=== PATIENT | male | born 2000 | race Hispanic/Latino ===

== ENCOUNTER 2019-08-08 01:02 | Inpatient (IN) | payer BC, SELFPAY ==
[2019-08-08] MEDS ORDERED: NA CHLORIDE 0.9% 2,000 ML ONE ×2 (01:44→01:49)
[2019-08-08 01:47] LABS: Absolute Lymphocytes (CBC) 0.9 K/uL (0.7-4.9); Basophils % 0.6 % (0-1.3); Hematocrit 39.9 % (39.6-49.0); Lymphocytes % 7.1 % (15.3-44.8); MPV 8.7 fL (7.6-11.3); RBC Red Blood Cell Count 4.47 M/uL (4.33-5.43)
[2019-08-08] MEDS ORDERED: ACT CHARCOAL/SORB 50 GM/240ML ONE (01:49)
[2019-08-08 01:50] LABS: Protime INR 1.04
[2019-08-08 02:12] LABS: ALT/SGPT 48 U/L (12-78); AST/SGOT 58 U/L (15-37); Albumin 4.3 g/dL (3.4-5.0); Alkaline Phosphatase 109 U/L (45-117); BUN Blood Urea Nitrogen 12 mg/dL (7-18); Bicarbonate 25 mmol/L (21-32); Bilirubin Direct 0.1 mg/dL (0-0.2); Bilirubin Total 0.5 mg/dL (0.2-1.0); Glucose Level 91 mg/dL (74-106); Potassium 3.6 mmol/L (3.5-5.1); Protein, Total 8.5 g/dL (6.4-8.2); Sodium Level 140 mmol/L (136-145)
[2019-08-08 02:49] LABS: Blood Morphology Comment NOT SEEN (NOT SEEN); Platelet Estimate ADEQ
[2019-08-08] MEDS ORDERED: LORazepam 2 MG/ML VIAL ONE ×5 (03:57→15:05)
[2019-08-08 04:32] LABS: Barbiturates NEGATIVE (NEGATIVE); Benzodiazepines NEGATIVE (NEGATIVE); Cocaine NEGATIVE (NEGATIVE); METHAMPHETAM NEGATIVE (NEGATIVE); Methadone NEGATIVE (NEGATIVE); Opiates NEGATIVE (NEGATIVE); Phencyclidine NEGATIVE (NEGATIVE); THC Cannibis NEGATIVE (NEGATIVE)
--- NOTE | 2019-08-08 07:36 | EKG ---
Test Date: 2019-08-08 Test Time: 01:51:34 Clinic Clerk: GEM MEASUREMENT RESULTS: Intervals: Rate: 112 IA: 170 QRSD: 86 QT: 326 QTc: 444 Aladdin: P: 81 IA: 170 QRS: 93 T: 22 INTERPRETIVE STATEMENTS: Sinus tachycardia Biatrial enlargement Rightward axis Pulmonary disease pattern Left ventricular hypertrophy with repolarization abnormality Abnormal ECG No previous ECG available for comparison Electronically Signed On 08-08-19 07:35:23 FELLER SEAM OPERATOR by Arturo Keating
[2019-08-08] MEDS ORDERED: NA CHLORIDE 0.9% 1,000 ML ONE ×2 (10:14→11:31)
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
[2019-08-08] MEDS ORDERED: ACETAMINOPHEN 650MG/RECT SUPP PR PRN (12:35)
[2019-08-08] MEDS ORDERED: ACETAMINOPHEN 500 MG TAB PO PRN (12:35)
[2019-08-08] MEDS ORDERED: ONDANSETRON 4 MG (ODT) TAB PO PRN (12:35)
[2019-08-08] MEDS ORDERED: KCL 20 MEQ/100 mL IVPB 20 MEQ/100 ML BAG IV ONE (13:00)
[2019-08-08] MEDS: D5.45NS W/KCL 20MEQ 1,000 ML IV SCH ×2 (13:17→21:22)
[2019-08-08] MEDS ORDERED: DIPHENHYDRAMINE 50 MG/ML VIAL IV ONE (15:43)
[2019-08-08] MEDS ORDERED: HALOPERIDOL LACT 5 MG/ML INJ IV ONE (15:43)
[2019-08-08] MEDS: LORazepam 2 MG/ML VIAL IV PRN (21:15)
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
[2019-08-08] MEDS: HALOPERIDOL LACT 5 MG/ML INJ IV PRN (21:56)
[2019-08-08] MEDS: DIPHENHYDRAMINE 50 MG/ML VIAL IV PRN (22:11)
[2019-08-08] MEDS ORDERED: WATER FOR INJ,STERILE 10 ML IM ONE (23:09)
[2019-08-08] MEDS ORDERED: ZIPRASIDONE MESYLA 20 MG/VIAL IM ONE (23:09)
[2019-08-09] MEDS: LORazepam 2 MG/ML VIAL IV PRN ×3 (04:27→20:41)
[2019-08-09] MEDS: HALOPERIDOL LACT 5 MG/ML INJ IV PRN ×3 (05:09→19:51)
[2019-08-09] MEDS: DIPHENHYDRAMINE 50 MG/ML VIAL IV PRN ×2 (05:10→08:43)
[2019-08-09] MEDS: D5.45NS W/KCL 20MEQ 1,000 ML IV SCH ×2 (05:11→12:37)
[2019-08-09 05:39] LABS: ALT/SGPT 47 U/L (12-78); AST/SGOT 43 U/L (15-37); Albumin 4.1 g/dL (3.4-5.0); Alkaline Phosphatase 104 U/L (45-117); BUN Blood Urea Nitrogen 5 mg/dL (7-18); Bicarbonate 22 mmol/L (21-32); Bilirubin Total 0.8 mg/dL (0.2-1.0); Glucose Level 106 mg/dL (74-106); Potassium 4.1 mmol/L (3.5-5.1); Sodium Level 142 mmol/L (136-145)
[2019-08-09 05:41] LABS: Basophils % 0.3 % (0-1.3); Hematocrit 41.3 % (39.6-49.0); Lymphocytes % 9.4 % (15.3-44.8); MPV 8.5 fL (7.6-11.3); RBC Red Blood Cell Count 4.55 M/uL (4.33-5.43)
[2019-08-09] MEDS: ENOXAPARIN 40 MG/0.4 ML SQ SCH (09:00)
[2019-08-09] MEDS: ZIPRASIDONE 20 MG CAP PO SCH ×2 (10:36→19:51)
--- NOTE | 2019-08-09 14:14 | PN ---
Date of Progress Note: 08/09/2019 Subjective: Patient is still very much confused, agitated, trying to get out of bed. Has required Haldol and Ativan. Medications: List reviewed. Physical Examination: Vital Signs: Temperature 98.3, heart rate 111, respirations 23, blood pressure 120/83, O2 of 100% on room air. General: Awake, alert, not oriented, confused, agitated, ill-appearing male. CV: S1, S2. Sinus tachycardia. Peripheral pulses present. Respiratory: Moving air well bilaterally. Patient is tachypneic. No use of accessory muscles. Gastrointestinal. Abdomen: Abdomen is soft, nontender, nondistended. Positive bowel sounds. Extremities: No clubbing, cyanosis, or edema. Neurologic: Nonfocal. Moves all 4 extremities. Laboratory Data: Sodium 142, potassium 4.1, chloride 116, CO2 of 22, BUN 5, creatinine 1.01, glucose 106, calcium 9.1. AST 43, ALT 47. WBC 10.2, hemoglobin and hematocrit 13.5 and 41.3, platelets 292, neutrophils 80%. Assessment: A 18-year-old male with: 1. Suicide attempt with overdose of medications. Continue suicide precautions. Inpatient psychiatric transfer once patient is medically stable. 2. Drug overdose with Zyprexa, Benadryl, Cogentin, and Topamax. The patient' s symptoms consistent with anticholinergic syndrome. We will continue with IV fluids. He was given charcoal. Continue with symptomatic treatment. Continue antiemetics and antipyretics. 3. Elevated AST, improving. Continue to monitor. Tylenol level is negative. 4. Leukocytosis with neutrophilia, improving. No acute infection. No antibiotics at this time. 5. Deep venous thrombosis prophylaxis, Lovenox. Plan: Continue with Haldol p.r.n. Likely refer to [facility] in the next 24 hours once medically stable. SA/MODL Voice ID: [id number] Report ID: [id number]
[2019-08-09] MEDS ORDERED: WATER FOR INJ,STERILE 10 ML IM PRN (20:58)
[2019-08-09] MEDS ORDERED: WATER FOR INJ,STERILE 10 ML ONE (21:10)
[2019-08-09] MEDS: ZIPRASIDONE MESYLA 20 MG/VIAL IM PRN (21:10)
[2019-08-09] MEDS ORDERED: LORazepam 2 MG/ML VIAL IV STA (21:24)
[2019-08-10] MEDS: LORazepam 2 MG/ML VIAL IV PRN ×4 (00:01→05:47)
[2019-08-10] MEDS: D5.45NS W/KCL 20MEQ 1,000 ML IV SCH ×4 (00:01→22:11)
[2019-08-10] MEDS: HALOPERIDOL LACT 5 MG/ML INJ IV PRN (01:30)
[2019-08-10] MEDS: ZIPRASIDONE MESYLA 20 MG/VIAL IM PRN (08:46)
[2019-08-10] MEDS: ENOXAPARIN 40 MG/0.4 ML SQ SCH (08:49)
[2019-08-10] MEDS: ZIPRASIDONE 20 MG CAP PO SCH ×2 (13:53→23:25)
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
[2019-08-11 04:08] VITALS: BMI 19.2
[2019-08-11 05:02] LABS: Absolute Lymphocytes (CBC) 0.9 K/uL (0.7-4.9); Basophils % 0.3 % (0-1.3); Hematocrit 41.2 % (39.6-49.0); Lymphocytes % 8.8 % (15.3-44.8); MPV 8.3 fL (7.6-11.3); RBC Red Blood Cell Count 4.59 M/uL (4.33-5.43)
[2019-08-11 05:20] LABS: ALT/SGPT 28 U/L (12-78); AST/SGOT 19 U/L (15-37); Albumin 3.8 g/dL (3.4-5.0); Alkaline Phosphatase 101 U/L (45-117); BUN Blood Urea Nitrogen 7 mg/dL (7-18); Bicarbonate 22 mmol/L (21-32); Bilirubin Total 0.9 mg/dL (0.2-1.0); Glucose Level 99 mg/dL (74-106); Potassium 3.8 mmol/L (3.5-5.1); Sodium Level 140 mmol/L (136-145)
[2019-08-11] MEDS: D5.45NS W/KCL 20MEQ 1,000 ML IV SCH ×2 (05:44→12:53)
[2019-08-11] MEDS: ZIPRASIDONE 20 MG CAP PO SCH ×2 (08:08→21:00)
[2019-08-11] MEDS: ENOXAPARIN 40 MG/0.4 ML SQ SCH (08:08)
[2019-08-11] MEDS ORDERED: POTASSIUM CL SA 10 MEQ TAB PO ONE (09:00)
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
--- NOTE | 2019-08-11 19:52 | PN ---
Date of Progress Note: 08/11/2019 Subjective: Patient seen and examined, chart reviewed, and case discussed with RN. Patient much mor e awake and alert, back to baseline. No acute events overnight. Medications: List reviewed. Objective: Vital Signs: Temperature 98.9, heart rate 73, blood pressure 117/76, respirations 16, O2 of 96% on room air. General: Awake, alert, oriented x3. Not in any acute distress. CV: S1, S2. Regular rate and rhythm. Respiratory: Moving air well bilaterally. Abdomen: Soft, nontender, nondistended. Positive bowel sounds. Extremities: No clubbing, cyanosis, or edema. Neuro: Nonfocal. Psych: Mood is okay. Affect is full. Insight and judgment are poor. Laboratory Data: Sodium 140, potassium 3.8, chloride 112, CO2 of 22, BUN 7, creatinine 0.94, glucose 99, calcium 8.8. AST 19, ALT 28. WBC 10, H and H 13.9 and 41.2, platelets 290. Assessment: A 18-year-old male with: 1.Acute suicide attempt with overdose of medications. Appreciate Dr. Vargas's input. We will co ntinue suicide precautions. 2.Drug overdose with Zyprexa, Benadryl, Cogentin, and Topamax. Anticholinergic syndrome is improved . He did receive charcoal in the ER. Patient still having some minimal tachycardia. Otherwise, tem perature is better. Some low-grade temperatures. 3.Elevated AST, improving. 4.Leukocytosis, resolved. 5.Deep vein thrombosis prophylaxis with Lovenox. Plan: Transfer to inpatient psychiatric facility once accepted. /THOMAS Voice ID: [id number] Report ID: [id number]
[2019-08-12] MEDS: ENOXAPARIN 40 MG/0.4 ML SQ SCH ×2 (08:17→09:00)
[2019-08-12] MEDS ORDERED: POTASSIUM CL SA 10 MEQ TAB PO ONE (09:00)
[2019-08-12 10:44] VITALS: O2SAT 99
--- NOTE | 2019-08-12 11:44 | P.PN ---
Subjective Date of Service: 08/12/19 Chief Complaint: Drug overdosed Patient states he feels much better. He has no complain this morning. His vitals are stable. He has been ambulatory. Afebrile. Physical Examination - Vital Signs Temperature: 98.8 F Blood Pressure: 115/57 Pulse: 76 Respirations: 18 Pulse Ox (%): 95 - Physical Exam General: Alert, In no apparent distress, Oriented x3 HEENT: Atraumatic, PERRLA, Mucous membr. moist/pink Neck: Supple, JVD not distended Respiratory: Clear to auscultation bilaterally, Normal air movement Cardiovascular: No edema, Normal pulses, Regular rate/rhythm, Normal S1 S2 Capillary refill: <2 Seconds Gastrointestinal: Normal bowel sounds, Soft and benign, Non-distended, No tenderness Musculoskeletal: No swelling, No erythema Integumentary: No rashes Neurological: Normal speech, Normal strength at 5/5 x4 extr, Cranial nerves 3- 12 intact Assessment And Plan - Current Problems (Diagnosis) (1) Suicide attempt by multiple drug overdose Current Visit: Yes Status: Acute (2) Sinus tachycardia Current Visit: Yes Status: Acute (3) Elevated LFTs Current Visit: Yes Status: Acute (4) Adjustment reaction with anxiety and depression Current Visit: Yes Status: Acute - Plan Patient has improved clinically stable. Liver enzymes are normal. Tachycardia has resolved. Patient is clinically stable for disposition. Psychiatry to follow regarding suicide attempt and assist with disposition.
[2019-08-12 16:42] VITALS: BP 142/83; TEMP 99.1
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
== END 2019-08-12 18:15 | disposition home or self-care (01) | DRG 918 ==
LOC: ER 01:02 → ERHOLD 10:28 → 3RD-ICU 12:08
PROVIDERS: ADMIT Family Medicine; ATTEND Internal Medicine
DX: T43.592A Poisoning by other antipsychotics and neuroleptics, intentional self-harm, initial encounter (principal); T45.0X2A Poisoning by antiallergic and antiemetic drugs, intentional self-harm, initial encounter; T44.3X2A Poisoning by other parasympatholytics [anticholinergics and antimuscarinics] and spasmolytics, intentional self-harm, initial encounter; R45.1 Restlessness and agitation; R41.0 Disorientation, unspecified; D72.829 Elevated white blood cell count, unspecified; F32.89 Other specified depressive episodes; R00.0 Tachycardia, unspecified; F43.23 Adjustment disorder with mixed anxiety and depressed mood; R79.89 Other specified abnormal findings of blood chemistry; Y92.9 Unspecified place or not applicable
CPT/HCPCS: 36415; 80048; 80053; 80076; 80307; 80320; 80329; 84132; 85025; 85610; 85730; 93005; 96361; 96374; 99285; J1200; J1630; J1650; J3486; J7030